=== PATIENT | female | born 1990 | race Hispanic/Latino ===

== ENCOUNTER 2021-02-24 13:33 | Emergency (ER) | payer SELFPAY ==
--- NOTE | ~2021-02-24 | US_ITS ---
US OB <=14 wk fetus w TV DATE: 02/24/2021 15:50 INDICATION: Vaginal bleeding for one day TECHNIQUE: Real-time imaging via transabdominal and transvaginal approaches COMPARISON: None FINDINGS: Uterus measures 9.5 cm height, 6.2 cm transverse and 5 cm AP dimension. An intrauterine gestational sac is identified, with surrounding hyperechogenicity consistent with dec idual reaction. Yolk sac is noted but no pole is identified. Gestational sac size is consistent with 6 weeks 1 day +/- 4 days. No pelvic mass lesion or abnormal pelvic fluid collection is evident. The ovaries were not visualized. IMPRESSION: Intrauterine gestational sac is identified, with yolk sac but no detected pole Follow up ultrasound imaging is recommended. Reviewed, dictated and finalized at [facility]. Reviewed, dictated and finalized at [facility]. ER IMPRESSION: Intrauterine gestational sac is identified, with yolk sac but no de tected pole Follow up ultrasound imaging is recommended.
[2021-02-24 13:38] VITALS: BP 125/85; PULSE 104; RESP 18; TEMP 36.3; O2SAT 99
--- NOTE | 2021-02-24 14:45 | ED.PREGNANCY ---
HPI - General Chief complaint: Vaginal Bleeding Stated complaint: vaginal bleeding 5 weeks . Time Seen by Provider: 02/24/21 14:05 Source: patient Mode of arrival: ambulatory Limitations: no limitations History of Present Illness HPI Narrative: This is a 30 year old female who presents for evaluation of vaginal bleeding. She is G4G3 approximately 5 weeks GA with positive test 1 week ago. Her last menstrual cycle was 01/17/21. She noticed pink discharge when she wipes. She is also having low back pain but she denies abdominal pain. Related Data Allergies Allergy/AdvReac Type Severity Reaction Status Date / Time No Known Allergies Allergy Verified 02/24/21 13:56 Review of Systems Review of Systems: All systems reviewed & are unremarkable except as noted in HPI and below PMFSH Past Medical History Medical History (Updated 02/24/21 @ 16:36 by Desiree Unger MD) Patient denies medical problems Surgical History Surgical History (Updated 02/24/21 @ 14:48 by Desiree Unger MD) No pertinent past surgical history Social History Social History (Updated 02/24/21 @ 14:48 by Desiree Unger MD) Smoking status: Never smoker Exam Const: General: no acute distress and alert Orientation/consciousness: patient oriented x3 HENMT: Head: normocephalic and atraumatic Face and sinus: face symmetric Resp: Effort & Inspection: normal respiratory effort and no retractions Auscultation: clear to auscultation bilaterally Cardio: Rate: regular rate Rhythm: regular rhythm Heart sounds: no murmurs GI: GI Palp: Yes Soft to palpation, No Tenderness to palpation present (GI) and No Guarding due to palpation present (GI) Auscultation: normal bowel sounds : Speculum Exam - Cervix: Cervical os closed Other: pink discharge Back/Spine/Pelvis: Back: no CVA tenderness Skin: General skin exam: normal color Rashes: no rashes Neuro: General: patient oriented x3, moves all extremities and CN's II-XI intact bilaterally Gait exam (Neuro): Normal gait present Extrem: General: normal to inspection Psych: Mental Status: mental status grossly normal Affect: normal affect Course Reevaluation(s) Reevaluation #1: I have discussed with patient US results and she will need follow up. I spoke with Dr. Baker director external communications OBGYN who will follow up with patient. Date: 02/24/21 Time: 16:35 Vital Signs Vital signs: Vital Signs Temperature 97.3 F L 02/24/21 13:38 Pulse Rate 104 H 02/24/21 13:38 Respiratory Rate 18 02/24/21 13:38 Blood Pressure 125/85 02/24/21 13:38 Pulse Oximetry 99 02/24/21 13:38 Temperature 97.3 F L 02/24/21 13:38 Pulse Rate 104 H 02/24/21 13:38 Respiratory Rate 18 02/24/21 13:38 Blood Pressure 125/85 02/24/21 13:38 Pulse Oximetry 99 02/24/21 13:38 MDM - OB/Uterine Contractions Lab Data Attestation: I reviewed the patient's lab results. Result diagrams: 02/24/21 15:05 Labs: Lab Results 02/24/21 02/24/21 02/24/21 Range/Units 15:05 15:05 15:05 WBC 12.2 H (4.5-10.0) K/mm3 RBC 4.82 (4.2-5.4) M/mm3 Hgb 15.3 H (12.0-15.0) g/dL Hct 43.0 (37.0-47.0) % MCV 89.2 (80-100) fl MCH 31.7 (26-34) pg MCHC 35.6 (32-36) g/dl RDW 13.2 (11.5-14.5) % Plt Count 310 (150-375) k/mm3 MPV 10.4 (7.4-10.4) fl Immature Gran % (Auto) 0.3 (0-0.5) % Neut % (Auto) 66.2 (45.5-73.1) % Lymph % (Auto) 23.3 (18.3-44.2) % [place] % (Auto) 7.5 (2.6-8.5) % Eos % (Auto) 2.4 (0-4.4) % Baso % (Auto) 0.3 (0.2-1.2) % Lymph # (Auto) 2.84 (0.9-3.2) K/mm3 [place] # (Auto) 0.9 H (0.1-0.6) K/mm3 Eos # (Auto) 0.3 (0-0.3) K/mm3 Baso # (Auto) 0.0 (0.0-0.1) K/mm3 Abs Immat Gran (auto) 0.04 H (0.00-0.031) K/mm3 Absolute Neuts (auto) 8.1 H (1.3-6.7) K/mm3 Absolute Nucleated RBC 0.0 (0.0-0.012) K/mm3 Nucleated RBC % 0.0 (0.0-0.2) % Beta HCG, Quant
[2021-02-24 15:23] LABS: Basophils Percent Auto 0.3 % (0.2-1.2); Eosinophils Absolute Auto 0.3 K/mm3 (0-0.3); Eosinophils Percent Auto 2.4 % (0-4.4); Hemoglobin 15.3 g/dL (12.0-15.0); Immature Granulocyte Absolute 0.04 K/mm3 (0.00-0.031); Immature Granulocyte Percent A 0.3 % (0-0.5); Lymphocytes Absolute Auto 2.84 K/mm3 (0.9-3.2); Lymphocytes Percent Auto 23.3 % (18.3-44.2); Mean Corpuscular HGB Conc 35.6 g/dl (32-36); Mean Corpuscular Hemoglobin 31.7 pg (26-34); Mean Corpuscular Volume 89.2 fl (80-100); Mean Platelet Volume 10.4 fl (7.4-10.4); Monocytes Absolute Auto 0.9 K/mm3 (0.1-0.6); Monocytes Percent Auto 7.5 % (2.6-8.5); Neutrophils Absolute Auto 8.1 K/mm3 (1.3-6.7); Neutrophils Percent Auto 66.2 % (45.5-73.1); Platelet Count Result 310 k/mm3 (150-375); Red Blood Count 4.82 M/mm3 (4.2-5.4); Red Cell Distribution Width 13.2 % (11.5-14.5); White Blood Count 12.2 K/mm3 (4.5-10.0)
[2021-02-24 15:28] LABS: Add Urine Microscopic? NO; Appearance Urine Clear (Clear); Bilirubin Urine Negative (Negative); Blood Urine Negative (Negative); Color Urine Straw (Yellow); Glucose Urine UA Negative (Negative); Ketones Urine Negative (Negative); Leukocyte Esterase Ur Negative LEU/UL (Negative); Nitrate Urine Negative (Negative); Protein Urine Negative (Negative); Specific Grav Ur 1.005 (1.001-1.035); Urobilinogen Urine Negative mg/dL (<2.0)
== END 2021-02-24 16:47 | disposition home or self-care (01) ==
PROVIDERS: Emergency Provider General Practice
DX: O20.0 Threatened abortion (principal); Z3A.01 Less than 8 weeks gestation of pregnancy
CPT/HCPCS: 36415; 76801; 76817; 81003; 81025; 84702; 85025; 85461; 99284